=== PATIENT | female | born 1980 ===

== ENCOUNTER 2016-11-07 12:59 | Inpatient (IN) | payer OTHER ==
[2016-11-07] MEDS ORDERED: Sodium Chloride 0.9% 1,000 ML IV ONE (15:01)
[2016-11-07] MEDS ORDERED: Piperacillin/Tazobact 3.375 gm 100 ML IV STA (15:03)
[2016-11-07] MEDS ORDERED: cefTRIAXone IV 1 gm in Dextros 50 ML IVPB STA (15:03)
--- NOTE | 2016-11-07 15:05 | CT ---
PROCEDURE: CT scan of the temporal bones dated 11/07/2016 COMPARISON: No prior study available for comparison TECHNIQUE: Total exam DLP = 509.85 mGy-cm. This CT exam was performed using one or more of the following dose reduction techniques: Automated exposure control, adjustment of the mA and/or kV according to patient size, and/or use of iterative reconstruction technique. Findings: Current study reveals near complete opacification of both mastoid air complexes as well as both middle ear canals of with opacification of the right and left attic. . Findings consistent with otitis media/ mastoiditis. No definitive bony destructive changes are identified. The drum spurs are intact on. The ossicular chains are also intact and appropriately located. . There appears to be bowing of of both tympanic membranes though the tympanic membranes cells are not well delineated due to opacification within the middle ear canal. The external auditory canals are patent without obvious bony destruction. The mid inner ear structures unremarkable. The. No evidence of soft tissue masses seen in the posterior nasopharyngeal soft tissues Note made of subtotal opacification of both maxillary antra. Minor mucosal thickening also seen within multiple ethmoid air cells extending superiorly into the frontal sinus right greater than left. . Minimal mucosal thickening within the sphenoid sinus. Impression: Findings are consistent with bilateral otitis media and mastoiditis. No obvious destructive changes seen at this time.
--- NOTE | 2016-11-07 15:12 | C.PDOC ---
History Of Present Illness 36-year-old female, presents to the emergency department with complaints of ten- day duration of B/L ear pain, ringing and decreased hearing. States that pain began a day after root canal was done on upper left tooth. Pt went to clinic and was started on Augmentin w/ minimal relief, she was seen by Dr Eller, who referred her to the ED for CT scan. No drainage. Patient had URI symptoms prior to onset of current symptoms. No other complaints at this time. Time Seen by Provider: 11/07/16 13:27 Chief Complaint (Nursing): ENT Problem History Per: Patient History/Exam Limitations: None Onset/Duration Of Symptoms: Days Current Symptoms Are (Timing): Still Present Past Medical History Reviewed: Historical Data, Nursing Documentation, Vital Signs Vital Signs: Last Vital Signs Temp 97.4 F L 11/07/16 17:00 Pulse 53 L 11/07/16 17:00 Resp 15 11/07/16 17:00 BP 113/64 11/07/16 17:00 Pulse Ox 100 11/07/16 17:00 - Medical History PMH: No Chronic Diseases Family History: States: Unknown Family Hx - Social History Hx Alcohol Use: No Hx Substance Use: No Review Of Systems Except As Marked, All Systems Reviewed And Found Negative. Constitutional: Negative for: Fever, Chills ENT: Positive for: Ear Pain Cardiovascular: Negative for: Chest Pain, Palpitations Gastrointestinal: Negative for: Vomiting Skin: Negative for: Rash Neurological: Negative for: Headache, Dizziness Physical Exam - Physical Exam Appears: Non-toxic, No Acute Distress Skin: Warm, Dry, No Rash Head: Atraumatic, Normacephalic Eye(s): bilateral: Normal Inspection, PERRL Ear(s): Bilateral: Other (Mild post auricular tenderness B/L) Nose: Normal Oral Mucosa: Moist Lips: Normal Appearing Throat: Normal Neck: Supple Cardiovascular: Rhythm Regular Respiratory: Normal Breath Sounds Gastrointestinal/Abdominal: Soft, No Tenderness Extremity: Normal ROM Neurological/Psych: Oriented x3, Normal Speech, Normal Cognition, Normal Cranial Nerves, No Cerebellar Signs ED Course And Treatment - Laboratory Results Result Diagrams: 11/07/16 15:27 11/07/16 15:27 ECG: Interpreted By Me ECG Rhythm: Sinus Rhythm ECG Interpretation: Normal Rate From EC O2 Sat by Pulse Oximetry: 99 - CT Scan/US Ears Other Rad Studies (CT/US): Radiology Report Reviewed CT/US Interpretation: Findings: Current study reveals near complete opacification of both mastoid air complexes as well as both middle ear canals of with opacification of the right and left attic. . Findings consistent with otitis media/ mastoiditis. No definitive bony destructive changes are identified. The drum spurs are intact on. The ossicular chains are also intact and appropriately located. . There appears to be bowing of of both tympanic membranes though the tympanic membranes cells are not well delineated due to opacification within the middle ear canal. The external auditory canals are patent without obvious bony destruction. The mid inner ear structures unremarkable. The. No evidence of soft tissue masses seen in the posterior nasopharyngeal soft tissues. Note made of subtotal opacification of both maxillary antra. Minor mucosal thickening also seen within multiple ethmoid air cells extending superiorly into the frontal sinus right greater than left. . Minimal mucosal thickening within the sphenoid sinus. Impression: Findings are consistent with bilateral otitis media and mastoiditis. No obvious destructive changes seen at this time. Medical Decision Making Medical Decision Making: Post CT discussed with dr Eller, in the ED. Plan to OR, requested admission by hospitalist, discussed with dr Adams who agrees Disposition - Disposition Disposition: HOSPITALIZED Disposition Time: 15:10 Condition: GOOD - Clinical Impression Clinical Impression: Otitis media, Mastoiditis - Scribe Statement The provider has reviewed the documentation as recorded by the Mikhail Tam All medical record entries made by the Seunibkatie were at my direction and personally dictated by me. I have reviewed the chart and agree that the record accurately reflects my personal performance of the history, physical exam, medical decision making, and the department course for this patient. I have also personally directed, reviewed, and agree with the discharge instructions and disposition. Decision To Admit - Pt Status Changed To: Hospital Disposition Of: Observation - . Bed Request Type: Regular Admitting Physician: Marah Adams Patient Diagnosis: Otitis media, Mastoiditis
[2016-11-07] MEDS ORDERED: Piperacillin/Tazobact 3.375 gm 100 ML IVPB ONE (15:22)
[2016-11-07] MEDS ORDERED: cefTRIAXone IV 1 gm in Dextros 50 ML IVPB ONE (15:30)
[2016-11-07] MEDS ORDERED: Sodium Chloride 0.9% 1,000 ML ONE (15:30)
[2016-11-07 15:31] LABS: BASO % 0.2 % (0.0-2.0); EOS # 0.3 K/uL (0.0-0.7); EOS % 3.4 % (0.0-4.0); HEMATOCRIT 33.2 % (34.0-47.0); LYMPH # 2.8 K/uL (1.0-4.3); LYMPH % 36.7 % (20.0-40.0); MEAN CELL VOLUME 72.7 fL (81.0-99.0); MEAN CORPUSCULAR HEMOGLOBIN 22.5 pg (27.0-31.0); MEAN CORPUSCULAR HGB CONC 30.9 g/dL (33.0-37.0); MONO # 0.6 K/uL (0.0-0.8); RED CELL DISTRIBUTION WIDTH 16.9 % (11.5-14.5); WHITE BLOOD COUNT 7.5 K/uL (4.8-10.8)
[2016-11-07 15:35] LABS: RBC URINE 14 /hpf (0-3); URINE BACTERIA MOD (<OCC); URINE BILIRUBIN NEGATIVE (NEGATIVE); URINE BLOOD NEGATIVE (NEGATIVE); URINE COLOR Yellow (YELLOW); URINE GLUCOSE (UA) NORMAL (Normal); URINE KETONE NEGATIVE (NEGATIVE); URINE LEUKOCYTE ESTERASE 3+ Leu/uL (Negative); URINE PROTEIN NEGATIVE (NEGATIVE); URINE UROBILINOGEN NORMAL mg/dL (0.2-1.0); WBC URINE 109 /hpf (0-5)
[2016-11-07 15:42] LABS: CHLORIDE 100 mmol/L (98-107); SODIUM 140 mmol/L (132-148)
[2016-11-07 15:43] LABS: POTASSIUM 3.7 mmol/L (3.6-5.2)
[2016-11-07 15:45] LABS: ALB/GLOB RATIO 1.1 (1.0-2.1); ALKALINE PHOSPHATASE 70 U/L (38-126); ALT/SGPT 47 U/L (9-52); AST/SGOT 25 U/L (14-36); BILIRUBIN,TOTAL 0.3 mg/dL (0.2-1.3); BLOOD UREA NITROGEN 8 mg/dL (7-17); CARBON DIOXIDE 29 mmol/L (22-30); GFR AFRICAN-AMERICAN > 60
[2016-11-07 15:46] LABS: GLUCOSE,RANDOM 92 mg/dL (65-105)
--- NOTE | 2016-11-07 15:48 | CP.PCM.HP ---
<Ada Ahmadi - Last Filed: 11/07/16 17:09> History of Present Illness - History of Present Illness History of Present Illness: Internal medicine H & P for Hospitalist service- Ada Ahmadi, PGY-1 Pt S & E at bedside. 36F w/no sig PMH admitted to hospital for B/L mastoiditis x 10 days. Pt reports cold symptoms - chills, sore throat, rhinorrhea, congestion prior to onset of B/L ear pain. Pain is sharp, constant, B/L, 8/10, radiates to posterior aspect of ears B/L. Pt reports she recent went to dentist for root canal, noted onset of symptoms prior to intervention. Pt went to a clinic on [facility] for ear pain, was prescribed Augmentin, took 2 pills yesterday without improvement in symptoms. Pain was not alleviated by Tylenol. No aggravating, inciting, or alleviating factors identified. Admits to hearing loss , tinnitus/humming sound. Denies fevers, SOB, CP, abdominal pain, changes in vision, changes in bowel or bladder habits, other complaints. PMH: Denies PSH: Denies All: Denies SH: Denies ETOH, tobacco, or illicit drug use PMD: Denies, although saw Faustino Anne for Rx Present on Admission - Present on Admission Any Indicators Present on Admission: No History of DVT/PE: No History of Uncontrolled Diabetes: No Urinary Catheter: No Decubitus Ulcer Present: No Review of Systems - Review of Systems All systems: reviewed and no additional remarkable complaints except - Constitutional Constitutional: Chills. absent: Fever - EENT Eyes: absent: Change in Vision Ears: Decreased Hearing, Tinnitus Nose/Mouth/Throat: Nasal Congestion, Sore Throat. absent: Hoarsness - Cardiovascular Cardiovascular: absent: Chest Pain, Palpitations - Respiratory Respiratory: Cough - Gastrointestinal Gastrointestinal: absent: Abdominal Pain, Nausea, Vomiting - Genitourinary Genitourinary: absent: Change in Urinary Stream, Dysuria - Integumentary Integumentary: absent: Swelling - Neurological Neurological: absent: Dizziness Past Patient History - Past Social History Smoking Status: Never Smoked - PSYCHIATRIC Hx Substance Use: No - SURGICAL HISTORY Hx Surgeries: No Meds Allergies/Adverse Reactions: Allergies Allergy/AdvReac Type Severity Reaction Status Date / Time No Known Allergies Allergy Verified 11/07/16 13:05 Physical Exam - Constitutional Appears: Non-toxic, No Acute Distress - Head Exam Head Exam: ATRAUMATIC, NORMAL INSPECTION, NORMOCEPHALIC - Eye Exam Eye Exam: EOMI, Normal appearance, PERRL Pupil Exam: NORMAL ACCOMODATION, PERRL - ENT Exam ENT Exam: Mucous Membranes Moist, Normal Exam, Normal External Ear Exam, Normal Oropharynx. absent: TM's Normal Bilaterally (dark cerumen obstructing most of ear canal B/L, unable to assess TM's appropriately) Additional comments: mildly tender to palpation over posterior auricular aspect B/L - Neck Exam Neck exam: Positive for: Full Rom, Normal Inspection. Negative for: Lymphadenopathy, Tenderness - Respiratory Exam Respiratory Exam: Clear to Auscultation Bilateral, NORMAL BREATHING PATTERN. absent: Rales, Rhonchi, Wheezes, Respiratory Distress, Stridor - Cardiovascular Exam Cardiovascular Exam: REGULAR RHYTHM, +S1, +S2 - GI/Abdominal Exam GI & Abdominal Exam: Normal Bowel Sounds, Soft. absent: Tenderness - Extremities Exam Extremities exam: Positive for: full ROM, normal inspection. Negative for: pedal edema - Back Exam Back exam: FULL ROM, NORMAL INSPECTION - Neurological Exam Neurological exam: Alert, CN II-XII Intact, Oriented x3 - Psychiatric Exam Psychiatric exam: Normal Affect, Normal Mood - Skin Skin Exam: Dry, Intact, Normal Color, Warm Results - Vital Signs Recent Vital Signs: Last Vital Signs Temp 97.8 F 11/07/16 15:39 Pulse 59 L 11/07/16 15:39 Resp 20 11/07/16 15:39 BP 137/88 11/07/16 15:39 Pulse Ox 99 11/07/16 15:39 - Labs Result Diagrams: 11/07/16 15:27 11/07/16 15:27 Labs: Laboratory Results - last 24 hr 11/07/16 15:27 WBC 7.5 RBC 4.57 Hgb 10.3 L Hct 33.2 L MCV 72.7 L MCH 22.5 L MCHC 30.9 L RDW 16.9 H Plt Count 540 H MPV 8.0 Neut % (Auto) 51.7 Lymph % (Auto) 36.7 [place] % (Auto) 8.0 Eos % (Auto) 3.4 Baso % (Auto) 0.2 Neut # 3.9 Lymph # 2.8 [place] # 0.6 Eos # 0.3 Baso # 0.0 Sodium 140 Potassium 3.7 Chloride 100 Carbon Dioxide 29 Anion Gap 16 BUN 8 Creatinine 0.4 L Est GFR ( Amer) > 60 Est GFR (Non-Af Amer) > 60 Random Glucose 92 Total Bilirubin 0.3 AST 25 ALT 47 Alkaline Phosphatase 70 Total Protein 8.0 Albumin 4.2 Globulin 3.8 Albumin/Globulin Ratio 1.1 Urine Color Yellow Urine Clarity Hazy Urine pH 6.0 Ur Specific [place] 1.006 Urine Protein Negative Urine Glucose (UA) Normal Urine Ketones Negative Urine Blood Negative Urine Nitrate Negative Urine Bilirubin Negative Urine Urobilinogen Normal Ur Leukocyte Esterase 3+ H Urine WBC (Auto) 109 H Urine RBC (Auto) 14 H Ur Squamous Epith Cells 56 H Urine Bacteria Mod H Urine Yeast (Budding) Occ H Urine HCG, Qual Negative Assessment & Plan - Assessment and Plan (Free Text) Assessment: Mastoiditis/Otitis media B/L No leukocytosis Afebrile Zosyn Floraster Tylenol PRN CT facial w/reveals near complete opacification of both mastoid air complexes as well as both middle ear canals of with opacification of the right and left attic. Findings consistent with otitis media/ mastoiditis. No definitive bony destructive changes are identified. The drum spurs are intact on. The ossicular chains are also intact and appropriately located. . There appears to be bowing of of both tympanic membranes though the tympanic membranes cells are not well delineated due to opacification within the middle ear canal. The external auditory canals are patent without obvious bony destruction. ENT consulted- pt for OR for tubes U/A positive for +LE, neg for nitrate FU repeat U/A GI/DVT ppx Pepcid SCDs Ambulate Dispo Admit to Med-Surg [id number] Ambulate OOBTC NPO for OR Regular diet after OR DW attending - Date & Time Date: 11/07/16 Time: 15:58 Decision To Admit - Pt Status Changed To: Hospital Disposition Of: Observation - . Bed Request Type: Regular Admitting Physician: Marah Adams <Marah Adams V - Last Filed: 11/09/16 03:01> Results - Vital Signs Recent Vital Signs: Last Vital Signs Temp 97.6 F 11/08/16 23:45 Pulse 59 L 11/08/16 23:45 Resp 20 11/08/16 23:45 BP 94/59 L 11/08/16 23:45 Pulse Ox 97 11/08/16 23:45 - Labs Result Diagrams: 11/07/16 15:27 11/07/16 15:27 Attending/Attestation - Attestation I have personally seen and examined this patient.: Yes I have fully participated in the care of the patient.: Yes I have reviewed all pertinent clinical information: Yes Notes (Text): This is late computer entry for 11/07/16. Patient seen, examined, and case discussed with day-time resident. This is a young woman who reports 10 days ago she has had bilateral ear infections, wherein, she took PO antibiotic seen in a clinic off [facility] but did not get better, reports she took for 7 days, and was seen in the ENT office , and recommended for myringtomy tubes. Patient denies other medical history. Patient denies acute complaints, except for ear pain, ear discharge, denies blood from the ears, and the hearing is affected. ENT (Dr. Eller) took the patient to the OR today. Patient had a CT facial completed prior confirming otitis media and mastoiditis. Assessment/Plan 1) Mastoiditis/Otitis media B/L No leukocytosis Afebrile Zosyn 3.375 Iv Q 6 hours Floraster 250mg PO bid Tylenol PRN CT facial (11/07/16) w/reveals near complete opacification of both mastoid air complexes as well as both middle ear canals of with opacification of the right and left attic. Findings consistent with otitis media/ mastoiditis. No definitive bony destructive changes are identified. The drum spurs are intact on. The ossicular chains are also intact and appropriately located. . There appears to be bowing of of both tympanic membranes though the tympanic membranes cells are not well delineated due to opacification within the middle ear canal. The external auditory canals are patent without obvious bony destruction. ENT consulted- pt for OR for tubes 2) U/A positive for +LE, neg for nitrate FU repeat U/A Asymptomatic contaminated sample 3) GI/DVT ppx Pepcid 20mg PO bid SCDs Ambulate
[2016-11-07] MEDS ORDERED: Lactated Ringer's 1,000 ML IV ONE (15:50)
[2016-11-07] MEDS ORDERED: Propofol 10 mg/ml Inj (20 ML) ONE (15:53)
--- NOTE | 2016-11-07 16:04 | RAD ---
HISTORY: Pre Op COMPARISON: None available. TECHNIQUE: Chest PA and lateral FINDINGS: LUNGS: No focal consolidation. Please note that chest x-ray has limited sensitivity for the detection of pulmonary masses. PLEURA: No significant pleural effusion identified. No definite pneumothorax . CARDIOVASCULAR: The cardiomediastinal silhouette appears within normal limits of size. OSSEOUS STRUCTURES: No acute osseous abnormality identified. VISUALIZED UPPER ABDOMEN: Unremarkable. OTHER FINDINGS: None. IMPRESSION: No focal consolidation, significant pleural effusion, or definite pneumothorax identified.
[2016-11-07] MEDS ORDERED: HYDROmorphone 0.5 mg/0.5 ml ISec IVP PRN (16:17)
--- NOTE | 2016-11-07 17:24 | OP ---
PROCEDURE DATE: 11/07/2016 PREOPERATIVE DIAGNOSES: Mastoiditis and acute otitis media. POSTOPERATIVE DIAGNOSES: Mastoiditis and acute otitis media. PROCEDURE: Bilateral myringotomy with tubes. SIGNIFICANT FINDINGS: Fluid noted behind both tympanic membranes. PROCEDURE: The patient was brought in the room and placed in the supine position. Anesthesia was in itiated through a face mask. The patient was draped in the usual manner. The head was turned. The right ear was brought into view using operative microscope and ear speculum. A radial incision was m rob in the anterior inferior quadrant. Fluid was noted behind the TM and suctioned out. Tube was pl aced. Floxin was placed. Next, the head was turned. The other ear was brought into view using oper ative microscope and ear speculum. A radial incision was made in the anterior inferior quadrant. Fl uid was noted behind the TM and suctioned out. Tube was placed. Floxin was placed. The ear speculu m and microscope were taken out of position. The patient was taken off anesthesia and taken to the r ecovery room in a stable manner. Pb Eller MD cc: [id number] TT: 11/07/2016 17:24:10 ramsey
[2016-11-07] MEDS: Piperacillin/Tazobact 3.375 GM in Sodium Chloride 100 ML IVPB SCH ×2 (17:35→23:50)
[2016-11-07] MEDS: Saccharomyces Boulardi 250 mg Cap PO SCH (18:27)
[2016-11-08] MEDS: Piperacillin/Tazobact 3.375 GM in Sodium Chloride 100 ML IVPB SCH ×4 (05:35→22:37)
[2016-11-08] MEDS: Saccharomyces Boulardi 250 mg Cap PO SCH ×2 (09:19→17:12)
--- NOTE | 2016-11-08 13:56 | CP.PCM.PN ---
<JayneDariusz - Last Filed: 11/08/16 15:24> Subjective - Date & Time of Evaluation Date of Evaluation: 11/08/16 Time of Evaluation: 07:45 - Subjective Subjective: PGY-1 Medicine Progress Note for Dr. Adams Patient seen and examined at bedside. No acute event overnight. Patient is POD# 1 for bilateral eustachian tubes. Patient still complaining of pain and tinnitus. As per Dr. Eller, patient started on prednisone. Patient is on IV antibiotics. Patient tolerating diet and having BM. Denied fever/chills, cp, sob , palpitations, abd pain, n/v/d. Objective - Vital Signs/Intake and Output Vital Signs (last 24 hours): Temp Pulse Resp BP Pulse Ox 98.2 F 56 L 20 100/61 18 L 11/08/16 08:41 11/08/16 08:41 11/08/16 08:41 11/08/16 08:41 11/08/16 08:41 - Medications Medications: Current Medications Acetaminophen (Tylenol 325mg Tab) 650 mg PO Q6 PRN PRN Reason: Pain, moderate (4-7) Last Admin: 11/08/16 09:20 Dose: 650 mg Famotidine (Pepcid) 20 mg PO DAILY [facility] Last Admin: 11/08/16 09:19 Dose: 20 mg Piperacillin Sod/Tazobactam (Sod 3.375 gm/ Sodium Chloride) 100 mls @ 200 mls/ hr IVPB Q6H [facility] Last Admin: 11/08/16 13:35 Dose: 200 mls/hr Prednisone (Prednisone Tab) 60 mg PO DAILY [facility] Stop: 11/18/16 13:21 Saccharomyces Boulardii (Florastor) 250 mg PO BID [facility] Last Admin: 11/08/16 09:19 Dose: 250 mg - Labs Labs: 11/07/16 15:27 11/07/16 15:27 PT 11.7 SECONDS (9.7-12.2) 11/07/16 15:27 INR 1.0 11/07/16 15:27 APTT 35 SECONDS (21-34) H 11/07/16 15:27 - Constitutional Appears: No Acute Distress - Head Exam Head Exam: ATRAUMATIC, NORMOCEPHALIC - Eye Exam Eye Exam: EOMI, Normal appearance Pupil Exam: PERRL - ENT Exam ENT Exam: Mucous Membranes Moist, Normal Oropharynx - Neck Exam Neck Exam: Normal Inspection Additional comments: TTP in bilateral posterior auricular area - Respiratory Exam Respiratory Exam: Clear to Ausculation Bilateral, NORMAL BREATHING PATTERN - Cardiovascular Exam Cardiovascular Exam: REGULAR RHYTHM, +S1, +S2 - GI/Abdominal Exam GI & Abdominal Exam: Soft, Normal Bowel Sounds. absent: Tenderness - Extremities Exam Extremities Exam: Normal Capillary Refill - Back Exam Back Exam: absent: CVA tenderness (L), CVA tenderness (R) - Neurological Exam Neurological Exam: Alert, Awake, CN II-XII Intact, Oriented x3 - Psychiatric Exam Psychiatric exam: Normal Affect, Normal Mood - Skin Skin Exam: Dry, Intact, Normal Color, Warm Assessment and Plan - Assessment and Plan (Free Text) Plan: 1. Mastoiditis/Bilateral Otitis media No leukocytosis Afebrile Zosyn 3.375 gm IVPB Q6H Floraster 250 mg PO BID Prednisone 60 mg PO daily for 10 days, 40 mg PO daily for 2 days, then 20 mg PO daily for 2 days (total of 14 days, started 11/08) Tylenol [address] PO Q6H PR[address] facial w/reveals near complete opacification of both mastoid air complexes as well as both middle ear canals of with opacification of the right and left attic. Findings consistent with otitis media/ mastoiditis. No definitive bony destructive changes are identified. The drum spurs are intact on. The ossicular chains are also intact and appropriately located. . There appears to be bowing of of both tympanic membranes though the tympanic membranes cells are not well delineated due to opacification within the middle ear canal. The external auditory canals are patent without obvious bony destruction. ENT consult, Dr. Eller, help appreciated 2. Suspected UTI UA: 3+ leukocyte esterase, 109 WBC, 14 RBC, 56 epith cells, mod bacteria, occult yeast FU repeat U/A 3. Prophylactic Measures Pepcid 20 mg PO BID SCDs Ambulate <Marah Adams V - Last Filed: 11/09/16 03:06> Objective - Vital Signs/Intake and Output Vital Signs (last 24 hours): Temp Pulse Resp BP Pulse Ox 97.6 F 59 L 20 94/59 L 97 11/08/16 23:45 11/08/16 23:45 11/08/16 23:45 11/08/16 23:45 11/08/16 23:45 - Medications Medications: Current Medications Acetaminophen (Tylenol 325mg Tab) 650 mg PO Q6 PRN PRN Reason: Pain, moderate (4-7) Last Admin: 11/08/16 09:20 Dose: 650 mg Famotidine (Pepcid) 20 mg PO DAILY [facility] Last Admin: 11/08/16 09:19 Dose: 20 mg Piperacillin Sod/Tazobactam (Sod 3.375 gm/ Sodium Chloride) 100 mls @ 200 mls/ hr IVPB Q6H [facility] Last Admin: 11/08/16 22:37 Dose: 200 mls/hr Prednisone (Prednisone Tab) 60 mg PO DAILY [facility] Stop: 11/18/16 13:21 Last Admin: 11/08/16 15:12 Dose: 60 mg Saccharomyces Boulardii (Florastor) 250 mg PO BID [facility] Last Admin: 11/08/16 17:12 Dose: 250 mg - Labs Labs: 11/07/16 15:27 11/07/16 15:27 PT 11.7 SECONDS (9.7-12.2) 11/07/16 15:27 INR 1.0 11/07/16 15:27 APTT 35 SECONDS (21-34) H 11/07/16 15:27 Attending/Attestation - Attestation I have personally seen and examined this patient.: Yes I have fully participated in the care of the patient.: Yes I have reviewed all pertinent clinical information, including history, physical exam and plan: Yes Notes (Text): This is late computer entry for 11/08/16. Patient seen, examined, and case discussed with day-time resident. Patient reports she is feeling better, reports hearing is muffled, and has ear drainage. No blood observed. Explained to the patient that is going to require IV antibiotic and the hearing may not return instant as she is expecting, but will need time for the hearing to recover slowly. Per ENT, recommended for steroid taper and IV Abx. Patient is asymptomatic of urinary tract infection. patient had abnormal UA, pending repeat studies. Assessment/Plan 1. Mastoiditis/Bilateral Otitis media No leukocytosis Afebrile Zosyn 3.375 gm IVPB Q6H (active since 11/07/16) Floraster 250 mg PO BID per ENTm Prednisone 60 mg PO daily for 10 days, 40 mg PO daily for 2 days, then 20 mg PO daily for 2 days (total of 14 days, started 11/08) Tylenol [address] PO Q6H PRN CT facial (11/07/16) w/reveals near complete opacification of both mastoid air complexes as well as both middle ear canals of with opacification of the right and left attic. Findings consistent with otitis media/ mastoiditis. No definitive bony destructive changes are identified. The drum spurs are intact on. The ossicular chains are also intact and appropriately located. . There appears to be bowing of of both tympanic membranes though the tympanic membranes cells are not well delineated due to opacification within the middle ear canal. The external auditory canals are patent without obvious bony destruction. ENT consult, Dr. Eller, help appreciated 2. Abnormal UA UA: 3+ leukocyte esterase, 109 WBC, 14 RBC, 56 epith cells, mod bacteria, occult yeast (contaminated sample based on squamous cells) FU repeat U/A, urine culture Patient denies symptoms 3. Prophylactic Measures Pepcid 20 mg PO BID SCDs b/l Ambulatory
[2016-11-09] MEDS: Piperacillin/Tazobact 3.375 GM in Sodium Chloride 100 ML IVPB SCH ×2 (05:14→11:21)
[2016-11-09 07:32] LABS: BASO % 0.2 % (0.0-2.0); HEMATOCRIT 29.2 % (34.0-47.0); LYMPH # 1.4 K/uL (1.0-4.3); LYMPH % 13.4 % (20.0-40.0); MEAN CELL VOLUME 71.5 fL (81.0-99.0); MEAN CORPUSCULAR HEMOGLOBIN 22.2 pg (27.0-31.0); MEAN CORPUSCULAR HGB CONC 31.1 g/dL (33.0-37.0); MEAN PLATELET VOLUME 8.1 fL (7.2-11.7); MONO # 0.3 K/uL (0.0-0.8); MONO % 3.2 % (0.0-10.0); RED CELL DISTRIBUTION WIDTH 16.8 % (11.5-14.5); WHITE BLOOD COUNT 10.7 K/uL (4.8-10.8)
[2016-11-09 07:52] LABS: CHLORIDE 103 mmol/L (98-107)
[2016-11-09 07:53] LABS: POTASSIUM 3.9 mmol/L (3.6-5.2); SODIUM 138 mmol/L (132-148)
[2016-11-09 07:55] LABS: ALB/GLOB RATIO 1.1 (1.0-2.1); ALKALINE PHOSPHATASE 51 U/L (38-126); ALT/SGPT 24 U/L (9-52); AST/SGOT 23 U/L (14-36); BILIRUBIN,TOTAL 0.3 mg/dL (0.2-1.3); BLOOD UREA NITROGEN 11 mg/dL (7-17); CARBON DIOXIDE 23 mmol/L (22-30); GFR AFRICAN-AMERICAN > 60; GLUCOSE,RANDOM 121 mg/dL (65-105); TOTAL PROTEIN 6.6 g/dL (6.3-8.3)
[2016-11-09 07:56] LABS: CALCIUM 8.4 mg/dl (8.6-10.4)
[2016-11-09 08:11] LABS: RBC URINE 3 /hpf (0-3); URINE BACTERIA RARE (<OCC); URINE BILIRUBIN NEGATIVE (NEGATIVE); URINE BLOOD NEGATIVE (NEGATIVE); URINE COLOR Yellow (YELLOW); URINE GLUCOSE (UA) NORMAL (Normal); URINE KETONE NEGATIVE (NEGATIVE); URINE LEUKOCYTE ESTERASE 2+ Leu/uL (Negative); URINE PROTEIN NEGATIVE (NEGATIVE); URINE UROBILINOGEN NORMAL mg/dL (0.2-1.0)
[2016-11-09 08:20] LABS: WBC URINE 4 /hpf (0-5)
--- NOTE | 2016-11-09 08:35 | CP.PCM.PN ---
Subjective - Date & Time of Evaluation Date of Evaluation: 11/09/16 Time of Evaluation: 08:33 - Subjective Subjective: very mild ear pain. Has greatly improved. Has persistent tinnitus ears: tubes in place, no discharge a/p: mastoiditis/ otitis media resolving tinnitus ok to d/c home on antibiotics and steroids needs a total of prednisone 60 mg po qd for 10 days, then prednisose 40 mg po qd for days 11 and 12, followed by prednisone 20 mg po qd for days 13 and 14. f/u in office in 1 week Objective - Vital Signs/Intake and Output Vital Signs (last 24 hours): Temp Pulse Resp BP Pulse Ox 97.6 F 59 L 20 94/59 L 97 11/08/16 23:45 11/08/16 23:45 11/08/16 23:45 11/08/16 23:45 11/08/16 23:45 - Medications Medications: Current Medications Acetaminophen (Tylenol 325mg Tab) 650 mg PO Q6 PRN PRN Reason: Pain, moderate (4-7) Last Admin: 11/08/16 09:20 Dose: 650 mg Famotidine (Pepcid) 20 mg PO DAILY [facility] Last Admin: 11/08/16 09:19 Dose: 20 mg Piperacillin Sod/Tazobactam (Sod 3.375 gm/ Sodium Chloride) 100 mls @ 200 mls/ hr IVPB Q6H [facility] Last Admin: 11/09/16 05:14 Dose: 200 mls/hr Prednisone (Prednisone Tab) 60 mg PO DAILY [facility] Stop: 11/18/16 13:21 Last Admin: 11/08/16 15:12 Dose: 60 mg Saccharomyces Boulardii (Florastor) 250 mg PO BID [facility] Last Admin: 11/08/16 17:12 Dose: 250 mg - Labs Labs: 11/09/16 07:08 11/09/16 07:08 PT 11.7 SECONDS (9.7-12.2) 11/07/16 15:27 INR 1.0 11/07/16 15:27 APTT 35 SECONDS (21-34) H 11/07/16 15:27
[2016-11-09 09:00] VITALS: BP 100/57; PULSE 72; RESP 16; TEMP 97.4; O2SAT 99
[2016-11-09] MEDS: Saccharomyces Boulardi 250 mg Cap PO SCH (09:59)
--- NOTE | 2016-11-09 12:53 | CARD ---
APPROVED REPORT EKG Measurement Heart [id number] <Conclusion> Normal sinus rhythm Normal ECG
--- NOTE | 2016-11-09 13:14 | CP.PCM.DIS ---
Addendum entered and electronically signed by Ada Ahmadi DO 11/09/16 13:25: Diagnoses: Mastoiditis- bilateral Otitis media- bilateral Original Note: <Ada Ahmadi - Last Filed: 11/09/16 13:12> Provider - Provider Date of Admission: 11/09/16 03:06 Attending physician: Marah Adams DO Primary care physician: None Consults: ENT- Behin Time Spent in preparation of Discharge (in minutes): 60 Hospital Course - Lab Results Lab Results: Most Recent Lab Values WBC 10.7 K/uL (4.8-10.8) 11/09/16 07:08 RBC 4.09 Mil/uL (3.80-5.20) 11/09/16 07:08 Hgb 9.1 g/dL (11.0-16.0) L 11/09/16 07:08 Hct 29.2 % (34.0-47.0) L 11/09/16 07:08 MCV 71.5 fL (81.0-99.0) L 11/09/16 07:08 MCH 22.2 pg (27.0-31.0) L 11/09/16 07:08 MCHC 31.1 g/dL (33.0-37.0) L 11/09/16 07:08 RDW 16.8 % (11.5-14.5) H 11/09/16 07:08 Plt Count 512 K/uL (130-400) H 11/09/16 07:08 MPV 8.1 fL (7.2-11.7) 11/09/16 07:08 Neut % (Auto) 83.2 % (50.0-75.0) H 11/09/16 07:08 Lymph % (Auto) 13.4 % (20.0-40.0) L 11/09/16 07:08 [place] % (Auto) 3.2 % (0.0-10.0) 11/09/16 07:08 Eos % (Auto) 0.0 % (0.0-4.0) 11/09/16 07:08 Baso % (Auto) 0.2 % (0.0-2.0) 11/09/16 07:08 Neut # 8.9 K/uL (1.8-7.0) H 11/09/16 07:08 Lymph # 1.4 K/uL (1.0-4.3) 11/09/16 07:08 [place] # 0.3 K/uL (0.0-0.8) 11/09/16 07:08 Eos # 0.0 K/uL (0.0-0.7) 11/09/16 07:08 Baso # 0.0 K/uL (0.0-0.2) 11/09/16 07:08 PT 11.7 SECONDS (9.7-12.2) 11/07/16 15:27 INR 1.0 11/07/16 15:27 APTT 35 SECONDS (21-34) H 11/07/16 15:27 Sodium 138 mmol/L (132-148) 11/09/16 07:08 Potassium 3.9 mmol/L (3.6-5.2) 11/09/16 07:08 Chloride 103 mmol/L (98-107) 11/09/16 07:08 Carbon Dioxide 23 mmol/L (22-30) 11/09/16 07:08 Anion Gap 16 (10-20) 11/09/16 07:08 BUN 11 mg/dL (7-17) 11/09/16 07:08 Creatinine 0.5 MG/DL (0.7-1.2) L 11/09/16 07:08 Est GFR ( Amer) > 60 11/09/16 07:08 Est GFR (Non-Af Amer) > 60 11/09/16 07:08 Random Glucose 121 mg/dL (65-105) H 11/09/16 07:08 Calcium 8.4 mg/dl (8.6-10.4) L 11/09/16 07:08 Magnesium 2.0 mg/dL (1.6-2.3) 11/09/16 07:08 Total Bilirubin 0.3 mg/dL (0.2-1.3) 11/09/16 07:08 AST 23 U/L (14-36) 11/09/16 07:08 ALT 24 U/L (9-52) 11/09/16 07:08 Alkaline Phosphatase 51 U/L (38-126) 11/09/16 07:08 Total Protein 6.6 g/dL (6.3-8.3) 11/09/16 07:08 Albumin 3.4 g/dL (3.5-5.0) L 11/09/16 07:08 Globulin 3.2 gm/dL (2.2-3.9) 11/09/16 07:08 Albumin/Globulin Ratio 1.1 (1.0-2.1) 11/09/16 07:08 Urine Color Yellow (YELLOW) 11/09/16 07:18 Urine Clarity Hazy (Clear) 11/09/16 07:18 Urine pH 5.0 (5.0-8.0) 11/09/16 07:18 Ur Specific [place] 1.021 (1.003-1.030) 11/09/16 07:18 Urine Protein Negative mg/dL (NEGATIVE) 11/09/16 07:18 Urine Glucose (UA) Normal mg/dL (Normal) 11/09/16 07:18 Urine Ketones Negative mg/dL (NEGATIVE) 11/09/16 07:18 Urine Blood Negative (NEGATIVE) 11/09/16 07:18 Urine Nitrate Negative (NEGATIVE) 11/09/16 07:18 Urine Bilirubin Negative (NEGATIVE) 11/09/16 07:18 Urine Urobilinogen Normal mg/dL (0.2-1.0) 11/09/16 07:18 Ur Leukocyte Esterase 2+ Ruma/uL (Negative) H 11/09/16 07:18 Urine WBC (Auto) 4 /hpf (0-5) 11/09/16 07:18 Urine RBC (Auto) 3 /hpf (0-3) 11/09/16 07:18 Ur Squamous Epith Cells 7 /hpf (0-5) H 11/09/16 07:18 Urine Bacteria Rare (<OCC) 11/09/16 07:18 Urine Yeast (Budding) Occ /hpf (NEGATIVE) H 11/09/16 07:18 Urine HCG, Qual Negative (NEGATIVE) 11/07/16 15:27 - Hospital Course Hospital Course: 36F w/no sig PMH admitted to hospital for B/L mastoiditis x 10 days. Pt reports cold symptoms - chills, sore throat, rhinorrhea, congestion prior to onset of B/L ear pain. Pain is sharp, constant, B/L, 8/10, radiates to posterior aspect of ears B/L. Pt reports she recent went to dentist for root canal, noted onset of symptoms prior to intervention. Pt went to a clinic on [facility] for ear pain, was prescribed Augmentin, took 2 pills yesterday without improvement in symptoms. Pain was not alleviated by Tylenol. No aggravating, inciting, or alleviating factors identified. Admits to hearing loss , tinnitus/humming sound. Denies fevers, SOB, CP, abdominal pain, changes in vision, changes in bowel or bladder habits, other complaints. Pt admitted to hospital for acute otitis media and B/L mastoiditis. Pt seen/ evaluated by ENT with recs for bilateral myringotomy with tube placement and IV antibiotics on hospital day 0. Pt with significant improvement in B/L ear pain and improved hearing over course of hospitalization with appropriate medical management. Pt stable, ready for discharge as per ENT on hospital day 2. Pt discharged an antibiotic x 7 days and prednisone taper as specified by ENT. Please see EMR for full record of hospitalization. - Date & Time of H&P Date of H&P: 11/07/16 Time of H&P: 15:46 Discharge Exam - Head Exam Head Exam: ATRAUMATIC, NORMAL INSPECTION, NORMOCEPHALIC - Eye Exam Eye Exam: EOMI, Normal appearance, PERRL Pupil Exam: NORMAL ACCOMODATION, PERRL - ENT Exam ENT Exam: Mucous Membranes Moist, Normal Exam, Normal External Ear Exam, Normal Oropharynx - Neck Exam Neck exam: Full Rom, Normal Inspection - Respiratory Exam Respiratory Exam: Clear to PA & Lateral, NORMAL BREATHING PATTERN, UNREMARKABLE - GI/Abdominal Exam GI & Abdominal Exam: Normal Bowel Sounds, Soft, Unremarkable. absent: Tenderness - Extremities Exam Extremities exam: full ROM, normal inspection - Back Exam Back exam: FULL ROM, NORMAL INSPECTION - Neurological Exam Neurological exam: Alert, CN II-XII Intact, Oriented x3 - Psychiatric Exam Psychiatric exam: Normal Affect, Normal Mood - Skin Skin Exam: Dry, Intact, Normal Color, Warm Discharge Plan - Discharge Medications Prescriptions: Levofloxacin [Levaquin] 500 mg PO DAILY #7 tablet predniSONE [Prednisone] 20 mg PO DAILY #2 tab predniSONE [Prednisone] 60 mg PO DAILY #8 tab predniSONE [predniSONE Tab] 40 mg PO DAILY #2 tab - Follow Up Plan Condition: STABLE Disposition: HOME/ ROUTINE Instructions: Mastoiditis (DC), Mastoiditis (GEN) Additional Instructions: Patient cleared for discharge home as per Dr. Olivera and Dr. Eller. Patient is to follow up with the [facility] within 1 week after discharge. Patient is to follow up with Dr. Eller as he specified after hospitalization. You are being discharged on an antibiotic, please take as directed. Please eat yogurt when you take the antibiotic. You are to complete a steroid taper, please take prednisone 60mg by mouth for 8 days, then take the Prednisone 40mg by mouth for 2 days, then the Prednisone 20mg by mouth for 2 days. If you have a recurrence of symptoms, please return to hospital. Referrals: [facility] [Outside] Pb Eller MD [Staff Provider] - <Jorge Luis Olivera H - Last Filed: 11/09/16 15:40> Provider - Provider Date of Admission: 11/09/16 03:06 Attending physician: Marah Adams, Hospital Course - Lab Results Lab Results: Most Recent Lab Values WBC 10.7 K/uL (4.8-10.8) 11/09/16 07:08 RBC 4.09 Mil/uL (3.80-5.20) 11/09/16 07:08 Hgb 9.1 g/dL (11.0-16.0) L 11/09/16 07:08 Hct 29.2 % (34.0-47.0) L 11/09/16 07:08 MCV 71.5 fL (81.0-99.0) L 11/09/16 07:08 MCH 22.2 pg (27.0-31.0) L 11/09/16 07:08 MCHC 31.1 g/dL (33.0-37.0) L 11/09/16 07:08 RDW 16.8 % (11.5-14.5) H 11/09/16 07:08 Plt Count 512 K/uL (130-400) H 11/09/16 07:08 MPV 8.1 fL (7.2-11.7) 11/09/16 07:08 Neut % (Auto) 83.2 % (50.0-75.0) H 11/09/16 07:08 Lymph % (Auto) 13.4 % (20.0-40.0) L 11/09/16 07:08 [place] % (Auto) 3.2 % (0.0-10.0) 11/09/16 07:08 Eos % (Auto) 0.0 % (0.0-4.0) 11/09/16 07:08 Baso % (Auto) 0.2 % (0.0-2.0) 11/09/16 07:08 Neut # 8.9 K/uL (1.8-7.0) H 11/09/16 07:08 Lymph # 1.4 K/uL (1.0-4.3) 11/09/16 07:08 [place] # 0.3 K/uL (0.0-0.8) 11/09/16 07:08 Eos # 0.0 K/uL (0.0-0.7) 11/09/16 07:08 Baso # 0.0 K/uL (0.0-0.2) 11/09/16 07:08 PT 11.7 SECONDS (9.7-12.2) 11/07/16 15:27 INR 1.0 11/07/16 15:27 APTT 35 SECONDS (21-34) H 11/07/16 15:27 Sodium 138 mmol/L (132-148) 11/09/16 07:08 Potassium 3.9 mmol/L (3.6-5.2) 11/09/16 07:08 Chloride 103 mmol/L (98-107) 11/09/16 07:08 Carbon Dioxide 23 mmol/L (22-30) 11/09/16 07:08 Anion Gap 16 (10-20) 11/09/16 07:08 BUN 11 mg/dL (7-17) 11/09/16 07:08 Creatinine 0.5 MG/DL (0.7-1.2) L 11/09/16 07:08 Est GFR ( Amer) > 60 11/09/16 07:08 Est GFR (Non-Af Amer) > 60 11/09/16 07:08 Random Glucose 121 mg/dL (65-105) H 11/09/16 07:08 Calcium 8.4 mg/dl (8.6-10.4) L 11/09/16 07:08 Magnesium 2.0 mg/dL (1.6-2.3) 11/09/16 07:08 Total Bilirubin 0.3 mg/dL (0.2-1.3) 11/09/16 07:08 AST 23 U/L (14-36) 11/09/16 07:08 ALT 24 U/L (9-52) 11/09/16 07:08 Alkaline Phosphatase 51 U/L (38-126) 11/09/16 07:08 Total Protein 6.6 g/dL (6.3-8.3) 11/09/16 07:08 Albumin 3.4 g/dL (3.5-5.0) L 11/09/16 07:08 Globulin 3.2 gm/dL (2.2-3.9) 11/09/16 07:08 Albumin/Globulin Ratio 1.1 (1.0-2.1) 11/09/16 07:08 Urine Color Yellow (YELLOW) 11/09/16 07:18 Urine Clarity Hazy (Clear) 11/09/16 07:18 Urine pH 5.0 (5.0-8.0) 11/09/16 07:18 Ur Specific [place] 1.021 (1.003-1.030) 11/09/16 07:18 Urine Protein Negative mg/dL (NEGATIVE) 11/09/16 07:18 Urine Glucose (UA) Normal mg/dL (Normal) 11/09/16 07:18 Urine Ketones Negative mg/dL (NEGATIVE) 11/09/16 07:18 Urine Blood Negative (NEGATIVE) 11/09/16 07:18 Urine Nitrate Negative (NEGATIVE) 11/09/16 07:18 Urine Bilirubin Negative (NEGATIVE) 11/09/16 07:18 Urine Urobilinogen Normal mg/dL (0.2-1.0) 11/09/16 07:18 Ur Leukocyte Esterase 2+ Ruma/uL (Negative) H 11/09/16 07:18 Urine WBC (Auto) 4 /hpf (0-5) 11/09/16 07:18 Urine RBC (Auto) 3 /hpf (0-3) 11/09/16 07:18 Ur Squamous Epith Cells 7 /hpf (0-5) H 11/09/16 07:18 Urine Bacteria Rare (<OCC) 11/09/16 07:18 Urine Yeast (Budding) Occ /hpf (NEGATIVE) H 11/09/16 07:18 Urine HCG, Qual Negative (NEGATIVE) 11/07/16 15:27 Attending/Attestation - Attestation I have personally seen and examined this patient.: Yes I have fully participated in the care of the patient.: Yes I have reviewed all pertinent clinical information, including history, physical exam and plan: Yes Notes (Text): 11/09/16 15:38 Medical attending: Patient was seen and examined by me, agree with the above note by medical territory manager. At this time are to discharge the patient she's can do need to continue to take oral Levaquin as well as a tapering dose of prednisone as well. She's given need to follow-up at [facility]. On examination she did not have any pain with manipulation of her bilateral ears she did not have pain behind her ears she did not have pain and submandibular or mandibular area as well. She appeared to be quite well. Thank you very much, Jorge Luis Olivera
== END 2016-11-09 16:15 | disposition home or self-care (01) | DRG 61 ==
LOC: C.ER 12:59 → C.9E 15:07 → C.6T 16:59 → OBSVTOIN 11-09 03:06
PROVIDERS: ADMIT Hospitalist; ATTEND Hospitalist
PROC: 099500Z Drainage of Right Middle Ear with Drainage Device, Open Approach (ICD-10-PCS; 2016-11-07)
PROC: 099600Z Drainage of Left Middle Ear with Drainage Device, Open Approach (ICD-10-PCS; principal; 2016-11-07 15:30)
DX: H66.93 Otitis media, unspecified, bilateral (principal); H70.003 Acute mastoiditis without complications, bilateral